=== PATIENT | male | born 1990 | race Two or more races ===

== ENCOUNTER 2021-03-31 11:58 | Emergency (ER) | payer MEDICAID, OTHER ==
[~2021-03-31] VITALS: Ht 175.3 cm; Wt 64.4 kg
[2021-03-31 15:11] VITALS: BP 123/86
[2021-03-31] MEDS ORDERED: METH500T22 PO (15:26)
== END 2021-03-31 15:40 | disposition home or self-care (01) ==
LOC: ER 11:58
DX: M62.830 Muscle spasm of back (principal); F41.9 Anxiety disorder, unspecified; Z79.899 Other long term (current) drug therapy; X58.XXXA Exposure to other specified factors, initial encounter; Y93.89 Activity, other specified; Y92.89 Other specified places as the place of occurrence of the external cause; Y99.8 Other external cause status
CPT/HCPCS: 71046

== ENCOUNTER 2023-10-20 15:11 | Emergency (ER) | payer MEDICAID ==
[~2023-10-20] VITALS: Ht 175.3 cm; Wt 72.1 kg
[~2023-10-20 15:11] MED LIST: METH-1181 PO
[2023-10-20] MEDS ORDERED: METH4PAK PO (16:11)
[2023-10-20 16:16] VITALS: BP 124/77; PULSE 70; RESP 16; TEMP 98.9; O2SAT 98
[2023-10-21] MEDS ORDERED: AZIT-185 PO (09:42)
== END 2023-10-20 16:23 | disposition home or self-care (01) ==
LOC: ER 15:11
DX: R09.81 Nasal congestion (principal); T50.995A Adverse effect of other drugs, medicaments and biological substances, initial encounter; Z79.899 Other long term (current) drug therapy; Y92.89 Other specified places as the place of occurrence of the external cause

== ENCOUNTER 2023-10-21 09:10 | Emergency (ER) | payer MEDICAID ==
[~2023-10-21] VITALS: Ht 175.3 cm; Wt 71.7 kg
[~2023-10-21 09:10] MED LIST changes: +METH4PAK PO
[2023-10-21 09:34] VITALS: BP 147/90; PULSE 69; RESP 18; TEMP 97.8; O2SAT 97
[2023-10-21] MEDS ORDERED: AZIT-185 PO (09:42)
== END 2023-10-21 09:48 | disposition home or self-care (01) ==
LOC: ER 09:10
DX: J03.90 Acute tonsillitis, unspecified (principal); Z79.899 Other long term (current) drug therapy

== ENCOUNTER 2023-11-03 02:29 | Emergency (ER) | payer MEDICAID ==
[~2023-11-03] VITALS: Ht 175.3 cm; Wt 70.8 kg
[~2023-11-03 02:29] MED LIST changes: +AZIT-185 PO
[2023-11-03 02:37] VITALS: BP 136/57; PULSE 70; RESP 16; TEMP 98.6; O2SAT 98
== END 2023-11-03 05:41 | disposition home or self-care (01) ==
LOC: ER 02:29
DX: R21 Rash and other nonspecific skin eruption (principal); T50.905A Adverse effect of unspecified drugs, medicaments and biological substances, initial encounter; Z79.899 Other long term (current) drug therapy; Y92.89 Other specified places as the place of occurrence of the external cause

== ENCOUNTER 2023-12-16 17:33 | Emergency (ER) | payer MEDICAID ==
[~2023-12-16] VITALS: Ht 175.3 cm; Wt 70.0 kg
[2023-12-16] MEDS ORDERED: IBUP-1455 PO (18:31)
[2023-12-16 18:51] VITALS: BP 127/76; PULSE 63; RESP 19; TEMP 98; O2SAT 96
== END 2023-12-16 18:53 | disposition home or self-care (01) ==
LOC: ER 17:33
DX: S16.1XXA Strain of muscle, fascia and tendon at neck level, initial encounter (principal); M54.50 Low back pain, unspecified; W22.8XXA Striking against or struck by other objects, initial encounter; Y93.89 Activity, other specified; Y92.89 Other specified places as the place of occurrence of the external cause; Y99.8 Other external cause status
CPT/HCPCS: 72040; 72100

== ENCOUNTER 2024-05-15 07:15 | Emergency (ER) | payer MEDICAID ==
[~2024-05-15] VITALS: Ht 177.8 cm; Wt 61.4 kg
[~2024-05-15 07:15] MED LIST changes: +IBUP-1455 PO
[2024-05-15 07:20] VITALS: BP 122/79; PULSE 68; RESP 16; O2SAT 98
--- NOTE | 2024-05-15 07:26 | ED.PDOC ---
General HPI Comments 33 year old male presents to the ED with chief complaint of urinary i ncontinence. Patient reports that he has been experiencing intermittent urinary incontinence along with associated suprapubic abdominal pain for the past week and constipation for the past 5 days. Patient relays that he has been needing to wear a diaper due to the incontinence. Patient denies any dysuria, hematuria, flank pain, N/V/D, fever, or chills. Time Seen by MD: 07:23 Primary Care Provider: DEAN Reviewed notes: Nurses Notes, Medications, Allergies Allergies: Coded Allergies: NO KNOWN ALLERGIES (Unverified , 01/14/11) Home Meds Active Scripts Ibuprofen Micronized (Ibuprofen) 800 Mg Tab, 800 MG PO Q8HP PRN, #20 TAB Prov:KATHLEEN ROWLAND PAC 12/16/23 Azithromycin (ZITHROMAX TABLET) 250 Mg Tb, 250 MG PO DAILY, #6 TAB Prov:KENDALL TRAN 10/21/23 Methylprednisolone (Medrol Dosepak) 4 Mg [place], 4 MG PO UD, #21 TAB UAD Prov:KENDALL TRAN 10/20/23 Methocarbamol (Methocarbamol) 500 Mg Tab, 500 MG PO BID for 10 Days, #20 TAB Prov:KENDALL TRAN 03/31/21 Information Source: Patient Mode of Arrival: Ambulatory Severity: Mild Inability to void: None Timing: Weeks Duration: Since onset Prehospital treatment: None Onset: Spontaneous Symptoms: None History of: None Location: Suprapubic Penile discharge: None Modifying factors: None associated signs and symptoms: Abdominal Pain Past Medical History PAST MEDICAL HISTORY: Denies Surgical History: Denies all surgeries Family History Family History: Reviewed,noncontributory to illness Social History Smoker: Non-Smoker Alcohol: Denies ETOH Use Drugs: Denies Drug Use Lives In: Home Constitutional: denies: chills, diaphoresis, fatigue, fever, malaise, sweats, weakness, others EENTM: denies: blurred vision, double vision, ear bleeding, ear discharge, ear drainage, ear pain, ear ringing, eye pain, eye redness, hearing loss, mouth pain, mouth swelling, nasal discharge, nose bleeding, nose congestion, nose pain, photophobia, tearing, throat pain, throat swelling, voice changes, others Respiratory: denies: cough, hemoptysis, orthopnea, SOB at rest, shortness of breath, SOB with excertion, stridor, wheezing, others Cardiovascular: denies: chest pain, dizzy spells, diaphoresis, Dyspnea on exertion, edema, irregular heart beat, left arm pain, lightheadedness, palpitations, PND, syncope, others Gastrointestinal: reports: abdominal pain, constipated; denies: abdomen distended, blood streaked bowels, diarrhea, dysphagia, difficulty swallowing, hematemesis, melena, nausea, poor appetite, poor fluid intake, rectal bleeding, rectal pain, vomiting, others Genitourinary: reports: incontinence; denies: burning, dysuria, flank pain, frequency, hematuria, penile discharge, penile sore, pain, testicle pain, testicle swelling, urgency, others Neurological: denies: dizziness, fainting, headache, left sided numbness, left sided weakness, numbness, paresthesia, pre-existing deficit, right sided numbness, right sided weakness, seizure, speech problems, tingling, tremors, weakness, others Musculoskeletal: denies: back pain, gout, joint pain, joint swelling, muscle pain, muscle stiffness, neck pain, others Integumetry: denies: bruises, change in color, change in hair/nails, dryness, laceration, lesions, lumps, rash, wounds, others Allergic/Immunocompromised: denies: Difficulty Healing, Frequent Infections, Hives, Itching, others Hematologic/Lymphatic: denies: anemia, blood clots, easy bleeding, easy bruising, swollen glands, others Endocrine: denies: excessive hunger, excessive sweating, excessive thirst, excessive urination, flushing, intolerance to cold, intolerance to heat, unexplained weight gain, unexplained weight loss, others Psychiatric: denies: anxiety, bipolar disorder, depression, hopeless, panic disorder, schizophrenia, sleepless, suicidal, others All Other Systems: Reviewed and Negative Physical Exam General Appearance: Moderate Distress, Normal HEENT: Normal ENT Inspection, PERRL/EOMI Neck: Full Range of Motion, Non-Tender, Normal, Normal Inspection Respiratory: Chest Non-Tender, Lungs Clear, No Accessory Muscle Use, No Respiratory Distress, Normal Breath Sounds Cardiovascular: No Edema, No JVD, No Murmur, No Gallop, Normal Peripheral Pulses, Regular Rate/Rhythm Breast Exam: Deferred Gastrointestinal: No Organomegaly, Non Tender, No Pulsatile Mass, Normal Bowel Sounds, Soft Genitalia: Deferred Pelvic: Deferred Rectal: Deferred Extremities: No calf tenderness, Normal capillary refill, Normal inspection, Normal range of motion, Non-tender, No pedal edema Musculoskeletal : Apperance: Normal Neurologic: Alert, evaporator II-XII nml as Tested, No Motor Deficits, Normal Affect, Normal Mood, No Sensory Deficits Cerebellar Function: Normal Reflexes: Normal Skin: Dry, Normal Color, Warm Peripheral Pulses: 3+ Radial (R), 3+ Radial (L) Lymphatic: No Adenopathy Was a procedure done? Was a procedure done?: No Differential Diagnosis Kidney stone (Female): Musculoskeletal pain, Urinary obstruction, Urolithiasis X-Ray, Labs, Meds, VS Patient alert. Complaining of burning on urination. Vitals stable. Answering all questions. No sign of any sepsis. Good skin color. Comfortable. No risk factors for any acute process. Explained to the patient. Was told to follow up with his primary care physician. Was told to come back if there is any problem. Time of 1ST Reevaluation: 08:23 Reevaluation 1ST: Unchanged Patient Education/Counseling: Diagnosis, Treatment Family Education/Counseling: No Family Present Additional Information The following tests were ordered, and results were reviewed by me: UA Additional Information was gathered from interviewing the following independent historians: None I reviewed and agreed with the following test results read by other providers: None I discussed treatment and results with medical personnel. Departure 1 Departure Time of Disposition: 07:28 Impression: Primary Impression: Urinary tract infection Qualified Codes: N39.0 - Urinary tract infection, site not specified Disposition: 01 HOME / SELF CARE / HOMELESS Condition: Good Discharged With: Self Critical Care Note Critical Care Time?: No Stability Stability form required: No Heart Score Heart Score: Heart Score Response (Comments) Value History N/A 0 EKG N/A 0 Age N/A 0 Risk Factors N/A 0 Troponin N/A 0 Total 0 I personally scribed for LY JAMISON MD ([email or web address]) on 05/15/24 at 07:26. Electronically submitted by Prieto Perez ([email or web address]). I personally scribed for LY JAMISON MD ([email or web address]) on 05/15/24 at 07:27. Electronically submitted by Prieto Perez ([email or web address]). LY JAMISON MD May 15, 2024 07:26
== END 2024-05-15 09:35 | disposition home or self-care (01) ==
LOC: ER 07:15
DX: N39.0 Urinary tract infection, site not specified (principal); Z79.899 Other long term (current) drug therapy